=== PATIENT | male | born 1985 | race Caucasian/White ===

== ENCOUNTER 2016-04-10 15:03 | Inpatient (IN) | payer MEDICAID ==
[2016-04-10] MEDS ORDERED: fentaNYL 100 MCG/2 ML INJ ONE ×2 (15:27→20:06)
--- NOTE | 2016-04-10 15:51 | EDPHY ---
H & P Smoking Status: Current some day smoker Time Seen by Provider: 04/10/16 15:22 HPI/ROS: CHIEF COMPLAINT: Right leg injury HISTORY OF PRESENT ILLNESS: 30-year-old male presents to the emergency department by private vehicle with injury to his right lower leg. The patient was [place] and fell. He states that his leg was initially rotated 180. The incident happened earlier this afternoon. He last ate food at 11:00 a.m.. He denies numbness or tingling in his toes, pain in his right ankle or right knee. Denies right hip pain. He was wearing a helmet. Denies head injury or loss of consciousness. Denies neck or back pain. Denies abdominal pain. REVIEW OF SYSTEMS: Constitutional: No fever, no chills. Eyes: No double or blurry vision. ENT: No sore throat. Respiratory: No cough, no shortness of breath. Cardiac: No chest pain. Gastrointestinal: No abdominal pain, vomiting or diarrhea. Genitourinary: No dysuria. Musculoskeletal: Right leg pain as above. No neck or back pain. Skin: No rashes. Neurological: No headache. (Carmenza Webster) Past Medical/Surgical History: Negative (Carmenza Webster) Social History: Single (Carmenza Webster) Physical Exam: General Appearance: Alert, no distress. Mentating normally and answering questions appropriately. No visible signs of trauma to his head. Eyes: Pupils equal and round. Extraocular motions are all intact. ENT: Mouth: Mucous membranes moist. Respiratory: No wheezing, rhonchi, or rales, lungs are clear to auscultation. Cardiovascular: Regular rate and rhythm. Gastrointestinal: Abdomen is soft and nontender, no masses, no rebound or guarding, bowel sounds normal. Neurological: Alert and oriented x 3, cranial nerves II through XII grossly intact Skin: No open wound. Specifically no puncture wound. Warm and dry, no rashes. Musculoskeletal: Nontender to palpate along the cervical, thoracic or lumbar spine. Neck is supple. Extremities: Right calf is swollen. Skin is intact. It is not tense. He has tenderness with palpation in the right mid calf especially. Normal sensation to light touch with normal 2 point discrimination. Strong dorsalis pedis pulse on the dorsal aspect of the right foot. Right ankle is nontender. Right knee is nontender. Right hip is nontender. Unable to assess mobility of right lower leg secondary to pain. Psychiatric: Patient is oriented X 3, there is no agitation. (Carmenza Webster) Constitutional: Initial Vital Signs Temperature (C) 36.6 C 04/10/16 15:15 Heart Rate 82 04/10/16 15:15 Respiratory Rate 16 04/10/16 15:15 Blood Pressure 146/98 H 04/10/16 15:15 O2 Sat (%) 97 04/10/16 15:15 O2 Delivery Mode Room Air Allergies/Adverse Reactions: soy Allergy (Severe, Verified 04/10/16 15:18) Swelling/neck,face,throat Home Medications: Medication Instructions Recorded Albuterol [Proventil Inhaler HFA 1 - 2 puffs IH Q4H PRN 04/10/16 (*)] Ephedrine Sulfate/Guaifenesin 1 each PO Q4 PRN 04/10/16 [BRONKAID DUAL ACTION CAPLET] Herbals/Supplements -Info Only 1 ea PO DAILY 04/10/16 Multivitamins [Multivitamin (*)] 1 each PO DAILY 04/10/16 Medical Decision Making - Diagnostics Imaging: X-rays of the right tib-fib: Comminuted fractures of the middiaphyseal shafts of the right tibia and fibula with slight displacement and angulation of the fracture fragments. This is reviewed by myself and the PAC system as well as by the radiologist. (Carmenza Webster) ED Course/Re-evaluation: The patient was evaluated and managed by the physician's financial administrative assistant. My cosignature indicates that I reviewed the chart and I agree with the findings and plan of care as documented. I am the secondary supervising physician. Dr. Conrad is in the emergency department to evaluate the patient. (Akua Nova) 30-year-old male with a fall skiing presents with isolated right leg injury. X- rays reveal comminuted displaced tibia and fibular fracture. I spoke with Dr. Ronni Conrad who will take this patient to the operating room tonight. The patient was kept NPO. His leg was elevated and ice was applied to help minimize risk of compartment syndrome. Clinically I do not think this patient currently has compartment syndrome. ( Carmenza Webster) Differential Diagnosis: Including but not limited to fracture, dislocation, contusion, sprain (Carmenza Webster) - Data Points Medications Given: Discontinued Medications Fentanyl (Sublimaze) 50 mcg IVP EDNOW ONE Stop: 04/10/16 15:57 Last Admin: 04/10/16 15:57 Dose: 50 mcg Hydromorphone HCl (Dilaudid) 0.5 mg IVP EDNOW ONE Stop: 04/10/16 16:11 Last Admin: 04/10/16 16:33 Dose: 0.5 mg Departure - Departure Disposition: To OP Cath/Surgery Clinical Impression: Fracture of right tibia and fibula Qualifiers: Encounter type: initial encounter Fracture type: closed Qualified Code(s): S82.201A - Unspecified fracture of shaft of right tibia, initial encounter for closed fracture Condition: Good
[2016-04-10] MEDS ORDERED: fentaNYL 100 MCG/2 ML INJ IVP ONE (15:56)
[2016-04-10] MEDS ORDERED: HYDROmorphONE/DILAUDID 1 MG/ML SYR IVP ONE (16:10)
[2016-04-10] MEDS ORDERED: BUPIVACAINE 0.5% 30 ML SDV ONE (16:39)
[2016-04-10] MEDS ORDERED: POLYMYXIN B SULFATE 500,000 UNIT/10 ML SYR IRR ONE (16:39)
[2016-04-10] MEDS ORDERED: BUPIVACAINE/EPI 0.5% 30 ML SDV ONE (16:39)
[2016-04-10] MEDS ORDERED: BACITRACIN 50,000 UNITS/10 ML SYR IRR ONE (16:39)
[2016-04-10] MEDS ORDERED: HYDROmorphONE/DILAUDID 2 MG/ML INJ ONE (16:47)
[2016-04-10] MEDS ORDERED: LIDOCAINE 2% 5 ML SDV ONE (16:47)
[2016-04-10] MEDS ORDERED: LIDOCAINE 2% JELLY 5 ML TUBE ONE (16:47)
[2016-04-10] MEDS ORDERED: PROPOFOL 200 MG/20 ML VIAL ONE ×2 (16:47→17:15)
[2016-04-10] MEDS ORDERED: DEXAMETHASONE 4 MG/ML VIAL ONE ×2 (16:48)
[2016-04-10] MEDS ORDERED: ONDANSETRON 4 MG/2 ML VIAL ONE ×2 (16:48→19:40)
[2016-04-10] MEDS ORDERED: ceFAZolin 2 GM/DEXTROSE 100 ML IV ONE (16:54)
[2016-04-10] MEDS ORDERED: CEFAZOLIN 2 GM/DEXTROSE/100 ML BAG IV ONE (17:00)
[2016-04-10] MEDS ORDERED: LABETALOL HCL 5 MG/ML 20 ML MDV ONE (17:40)
--- NOTE | 2016-04-10 17:41 | GHP ---
DATE OF ADMISSION: 04/10/2016 ADMITTING COMPLAINT: Right leg injury. HISTORY OF PRESENT ILLNESS: The patient is a 30-year-old gentleman who was [place] the [place]. He had a twisting fall. Described as a slow fall. It most likely built up significant energy before it blew out his tibia. His leg was twisted 180 degrees and subsequently was rotated back int o alignment and splinted. The patient was brought into the emergency room. He presented [facility] 4 hours after the event. His leg was swollen. He had some mild numbness. He was wearing a hel met at the time of the injury and denied any head injury. ALLERGIES: None. MEDICATIONS: None. REVIEW OF SYSTEMS: Negative with the exception of HPI. PHYSICAL EXAM: GENERAL: The patient is alert, oriented, cooperative with exam. Minimal discomfort with light exam of the leg. He is able to flex and extend the toes. No pain with passive motion. HEENT: His pupils are equal, round. No facial abrasions. Mouth: Membranes moist. RESPIRATORY: Clear. CARDIOVASCULAR: Regular rate and rhythm. GI: Soft abdomen. No tenderness. NEUROLOGIC: Normal mentation. Sensation intact to light touch throughout all dermatomes. Hypesthesia in the f oot evidently improved significantly after getting his ski boot off. SKIN: No open wounds. EXTREM ITIES: Palpable tenderness along the mid shaft tibia. Any sort of motion causes discomfort. Calf swollen. Anterior and lateral compartments swollen. Pulses 1+ dorsalis pedis, posterior tibialis. X-RAYS: Reviewed. Show a comminuted midshaft fracture of the tibia with shortening and moderate di splacement. ASSESSMENT: Midshaft tibia fracture in a leg that has significant swelling. The patient will be ta nandini to the operating room for IM nailing. Pressure measurements will be taken after nailing and if elevated consideration will be given toward fasciotomy. Risks were discussed at length including th e possibility of nonunion or malunion, compartment syndrome, loss of feeling or loss of motor functi on, leg length discrepancy, rotational malalignment. Patient understands these risks, as well as ro utine surgical risks, elected to proceed with the surgery. /[id number]/MODL
[2016-04-10] MEDS ORDERED: ALBUTEROL 60 PUFFS/8 GM MDI IH PRN (19:26)
[2016-04-10] MEDS ORDERED: diphenhydrAMINE 25 MG CAP PO PRN (19:27)
[2016-04-10] MEDS ORDERED: ONDANSETRON 4 MG/2 ML VIAL IVP PRN (19:27)
[2016-04-10] MEDS ORDERED: TEMAZEPAM 15 MG CAP PO PRN (19:27)
[2016-04-10] MEDS ORDERED: ONDANSETRON DISINTEGRATING 4 MG TAB PO PRN (19:27)
[2016-04-10] MEDS ORDERED: PROMETHAZINE HCL 25 MG/ML INJ IVP PRN (19:27)
[2016-04-10] MEDS ORDERED: DIPHENOXYLATE/ATROPINE LOMOTIL 1 TAB PO PRN (19:27)
[2016-04-10] MEDS ORDERED: PROMETHAZINE HCL 25 MG SUPPR PR PRN (19:27)
[2016-04-10] MEDS ORDERED: METOCLOPRAMIDE 10 MG/2 ML VIAL IVP PRN (19:27)
[2016-04-10] MEDS ORDERED: LR 1,000 ML IV SCH (19:30)
[2016-04-10] MEDS ORDERED: PROMETHAZINE HCL 25 MG/ML INJ ONE (19:40)
--- NOTE | 2016-04-10 20:02 | GOP ---
DATE OF OPERATION: 04/10/2016 SURGEON: Ronni Conrad MD FIELD ARTILLERY TARGETING TECHNICIAN: Magui Cam PA-C. ANESTHESIA: General. PREOPERATIVE DIAGNOSIS: 1. Comminuted right tibia and fibular fracture. 2. Rule out compartment syndrome. POSTOPERATIVE DIAGNOSIS: 1. Right comminuted tibia and fibular fracture. 2. Anterior and lateral compartment syndrome. PROCEDURE PERFORMED: 1. Open reduction, internal fixation right tibia and fibula fracture with intramedullary implant (S ynthes IM nail). 2. Measurement fascial compartment pressures right anterior lateral posterior deep and posterior schroeder perficial compartments. 3. Anterior and lateral fasciotomy, compartment fasciotomy. FINDINGS: DESCRIPTION OF PROCEDURE: The patient taken to the operating room and administered general anesthes ia, placed in supine position. The right lower extremity was prepped and draped normal sterile [facility] ion. Examination was performed followed by the elevation of thigh tourniquet to 275 mmHg pressure. A midline incision was made over the patella. Lateral parapatellar incision was made. The startin g hole was made with the starting drill. We ascertained our position and alignment under fluoroscop y. Reaming then commenced with the starting reamer into the metaphyseal area. A ball-tip guide was then passed across the fracture site. The fracture was brought under the appropriate length and ro tation. The reaming commenced with a size 8-1/2 and extended up to a size 11. The mercedes measured 360 mm length by 10 mm diameter. This was attached to the insertion device. The mercedes was then placed a cross the fracture under fluoroscopic control. The guide apparatus was attached proximally to the r od to insert the cross locking screw proximally. Small incision was made medially. The drill guide s were positioned. The drill was passed across the metaphyseal segment of the tibia. The length of the screw was measured. The screw was then placed. There was a 5 mm diameter by 40 mm length scre w. The distal alignment was ascertained with the fluoroscopy unit. Perfect circles were obtained. The radiolucent drill was used to drill across the metaphyseal segment in the distal tibia across t he mercedes. This length was then measured. This distal screw was then placed. We scanned the fracture and felt we had appropriate positioning. The tourniquet was let down. The compartment pressures w ere measured. The deep and superficial, posterior compartments both measured in the 17 mmHg range. This was felt to be appropriate. The anterior and lateral compartments were measured at 35 and 37 mm, respectively. This was felt to be in an appropriate range. We elected to release the anterior and lateral compartments. The fasciotomy incision was made at the compartment interval. Small blee ders were cauterized. The anterior compartment fascia was then released followed by the lateral com partment fascia. Irrigation was then performed. The carla were placed along the edge of the fasc iotomy incision. We threaded a vascular vessel loop through the carla. This was brought under mi ld tension to bring the superficial skin edges slightly together. There was still an opening of jayce roximately 3-4 cm along the width of the fasciotomy site. All muscle seemed viable and contracted n icely to pinching with a forceps. A bacitracin-soaked Adaptic was placed over our incision. The st erile compression was applied followed by a posterior splint. The patient tolerated the procedure w ell and was transferred back to recovery in stable condition. There were no operative complications . COMPLICATIONS: None. /[id number]/MODL
[2016-04-10] MEDS: ceFAZolin 2 GM/DEXTROSE 100 ML IV SCH (21:39)
[2016-04-10] MEDS: FAMOTIDINE 20 MG TAB PO SCH (21:41)
[2016-04-10] MEDS: oxyCODONE IR 5 MG TAB PO PRN (22:02)
[2016-04-10] MEDS: ACETAMINOPHEN 325 MG TAB PO SCH (23:41)
[2016-04-10] MEDS: CYCLOBENZAPRINE 10 MG TAB PO PRN (23:41)
[2016-04-11] MEDS: ceFAZolin 2 GM/DEXTROSE 100 ML IV SCH (05:14)
[2016-04-11] MEDS: oxyCODONE IR 5 MG TAB PO PRN ×5 (05:14→21:40)
[2016-04-11] MEDS: ACETAMINOPHEN 325 MG TAB PO SCH ×4 (05:14→22:12)
[2016-04-11 05:25] LABS: HEMATOCRIT 34.4 % (40.0-51.0); HEMOGLOBIN 11.1 g/dL (13.7-17.5)
[2016-04-11] MEDS: FAMOTIDINE 20 MG TAB PO SCH ×2 (08:34→21:39)
[2016-04-11] MEDS: ASPIRIN 325 MG TAB PO SCH (08:34)
[2016-04-11] MEDS: CYCLOBENZAPRINE 10 MG TAB PO PRN ×2 (08:34→17:33)
--- NOTE | 2016-04-11 13:34 | SOAPPROG ---
SOAP Progress Note Assessment/Plan: Assessment: S/P Orif TIB/Fib Fx with IM nail and Anterior and lateral fasciotomies. Plan: Dressing change tomorrow. Neurovascular checks 04/11/16 13:32 Subjective: Mild pain Objective: Vital Signs Temp Pulse Resp BP Pulse Ox 37.0 C 61 16 106/61 99 04/11/16 12:00 04/11/16 12:00 04/11/16 12:00 04/11/16 12:00 04/11/16 12:00 Laboratory Results 04/11/16 04:26 04/10/16 04/11/16 04/12/16 05:59 05:59 05:59 Intake Total 2430 Output Total 1300 Balance 1130 VSS, CSMT ok no pain with prom toes. Can flex and extend toes actively ICD10 Worksheet Patient Problems: Problems Problem Status Onset Fracture of right tibia and fibula Acute
[2016-04-11] MEDS: ceFAZolin 2 GM in D5W 100 ML IV SCH ×2 (14:24→21:39)
[2016-04-11] MEDS ORDERED: BACITRACIN OINTMENT 1 PACKET TP PRN (14:57)
[2016-04-12] MEDS: ceFAZolin 2 GM in D5W 100 ML IV SCH ×3 (04:59→21:15)
[2016-04-12] MEDS: ACETAMINOPHEN 325 MG TAB PO SCH ×4 (04:59→23:58)
[2016-04-12] MEDS: oxyCODONE IR 5 MG TAB PO PRN ×2 (04:59→08:13)
[2016-04-12] MEDS: CYCLOBENZAPRINE 10 MG TAB PO PRN ×2 (05:00→14:15)
[2016-04-12 06:28] LABS: HEMOGLOBIN 10.3 g/dL (13.7-17.5)
[2016-04-12] MEDS: ASPIRIN 325 MG TAB PO SCH (08:12)
[2016-04-12] MEDS: FAMOTIDINE 20 MG TAB PO SCH ×2 (08:13→20:13)
--- NOTE | 2016-04-12 09:50 | SOAPPROG ---
SOAP Progress Note Assessment/Plan: Assessment/Plan: Right Tibia/Fibula Fracture, compartment syndrome S/P Orif TIB/Fib Fx with IM nail and Anterior and lateral fasciotomies, POD #2 -Dressing changed today, may need change tomorrow as well -Cont Neurovascular checks -Cont ice and elevation while in bed as tolerated -Cont NWB status of RLE -Cont ASA 325mg for VTE chemoprophylaxis -Cont non-op SCDs and TEDs for VTE mechanical prophylaxis -Cont current pain regimen, transition to PO pain meds as tolerated 04/12/16 09:50 Subjective: Pt seen at bedside today. Notes no significant pain this am, but does state he has had some discomfort when repositioning with PT/OT. Pt had considerable pain today with dressing change. Denies any new onset n/t of BLE, as well as any cp, sob or post calf pain contralaterally. Pt states he is tolerating his medications well. He does note some urinary retention overnight, but was relieved with straight cath. No additional concerns or complaints at this time. Objective: Vital Signs Temp Pulse Resp BP Pulse Ox 36.6 C 58 L 16 119/60 98 04/12/16 08:00 04/12/16 08:00 04/12/16 08:00 04/12/16 08:00 04/12/16 08:00 Laboratory Results 04/12/16 04:50 04/11/16 04/12/16 04/13/16 05:59 05:59 05:59 Intake Total 2430 1500 Output Total 1300 1350 1300 Balance 1130 150 -1300 Pt seen at bedside, A&Ox3, appropriate mood and affect. Pleasant and cooperative with exam. VSS. Exam of RLE reveals intact post operative dressings, saturated, which are removed revealing intact carla and retention closures. Surgical incisions are w/o significant erythema, calor or induration. Wound redressed with adaptic, ABD, cast padding, post orthoglass splint, and compressive franklin dressing assisted by MARILEE Kovacs. Pt tolerated with moderate pain. Pt able to move toes well. Contralateral post calf NTTP, no palpable vascular cord, neg Sabiha's. DNVI BLE. ICD10 Worksheet Patient Problems: Problems Problem Status Onset Fracture of right tibia and fibula Acute
[2016-04-13] MEDS: ACETAMINOPHEN 325 MG TAB PO SCH ×4 (05:32→23:46)
[2016-04-13] MEDS: ceFAZolin 2 GM in D5W 100 ML IV SCH ×3 (05:33→21:26)
[2016-04-13] MEDS: CYCLOBENZAPRINE 10 MG TAB PO PRN ×2 (06:20→22:12)
--- NOTE | 2016-04-13 09:00 | SOAPPROG ---
SOAP Progress Note Assessment/Plan: Assessment/Plan: - Continue pain management - Continue PT - Continue bed rest with toilet privileges - Closure of the fasciotomy site tomorrow in the OR - NPO after midnight 04/13/16 08:44 04/13/16 09:04 Subjective: Pt states he has had minimal pain over the past 24hours. Pain is a 2/10. Pt states when he was taking the morphine he was having trouble voiding and need a straight cath x 2. Dressing change was done yesterday. Pt denies fever, chills, chest pain, SOB, abdominal pain, N/V/D, calf pain, numbness and tingling. Objective: Vital Signs Temp Pulse Resp BP Pulse Ox 37.1 C 68 16 120/74 96 04/13/16 07:42 04/13/16 07:42 04/13/16 07:42 04/13/16 07:42 04/13/16 07:42 Laboratory Results 04/12/16 04:50 04/12/16 04/13/16 04/14/16 05:59 05:59 05:59 Intake Total 1500 1255 425 Output Total 1350 3200 400 Balance 150 -1945 25 Physical Exam - Physical Exam General Appearance: alert, no apparent distress Skin: normal color, warm/dry Extremities: normal capillary refill, other (Dressing and splint intact LLE with minimal oozing on dressing; pt is able to wiggle his toes and strength intact), No pedal edema, No calf tenderness, No swelling, No Sabiha's sign Neuro/Psych: no motor/sensory deficits, alert, normal mood/affect ICD10 Worksheet Patient Problems: Problems Problem Status Onset Fracture of right tibia and fibula Acute
[2016-04-13] MEDS: ASPIRIN 325 MG TAB PO SCH (09:33)
[2016-04-13] MEDS: FAMOTIDINE 20 MG TAB PO SCH ×2 (09:41→21:26)
[2016-04-14] MEDS: ACETAMINOPHEN 325 MG TAB PO SCH ×3 (05:14→18:47)
[2016-04-14] MEDS: ceFAZolin 2 GM in D5W 100 ML IV SCH ×3 (05:16→20:47)
[2016-04-14] MEDS: ASPIRIN 325 MG TAB PO SCH (07:38)
[2016-04-14] MEDS: FAMOTIDINE 20 MG TAB PO SCH ×2 (07:38→20:46)
[2016-04-14] MEDS ORDERED: POLYMYXIN B SULFATE 500,000 UNIT/10 ML SYR IRR ONE (08:45)
[2016-04-14] MEDS ORDERED: BUPIVACAINE 0.5% 30 ML SDV ONE (08:45)
[2016-04-14] MEDS ORDERED: BACITRACIN 50,000 UNITS/10 ML SYR IRR ONE (08:46)
--- NOTE | 2016-04-14 11:36 | SOAPPROG ---
SOAP Progress Note Assessment/Plan: Assessment/Plan: s/p ORIF right tibia and fibula with IM nail; fasciotomy of the anterior and lateral compartments POD#4 - Continue pain management - Continue PT - Continue bed rest with toilet privileges - Closure of the fasciotomy site today - Remain NPO 04/13/16 08:44 04/13/16 09:04 04/14/16 11:35 04/14/16 11:36 Subjective: Pt states his pain is manageable and has not been needing the narcotics. Pt has had some muscle spasms. Pt denies fever, chills, chest pain, SOB, abdominal pain, N/V/D, numbness, tingling and calf pain. Objective: Vital Signs Temp Pulse Resp BP Pulse Ox 36.8 C 56 L 16 106/66 98 04/14/16 07:45 04/14/16 07:45 04/14/16 07:45 04/14/16 07:45 04/14/16 07:45 Laboratory Results 04/12/16 04:50 04/13/16 04/14/16 04/15/16 05:59 05:59 05:59 Intake Total 1255 1500 Output Total 3200 1555 Balance -1945 -55 Physical Exam - Physical Exam General Appearance: alert, no apparent distress Skin: normal color, warm/dry, other (Splint intact RLE) Extremities: normal capillary refill, No pedal edema, No calf tenderness, No swelling, No Sabiha's sign Neuro/Psych: no motor/sensory deficits, alert, normal mood/affect ICD10 Worksheet Patient Problems: Problems Problem Status Onset Fracture of right tibia and fibula Acute
[2016-04-14] MEDS ORDERED: POLYETHYLENE GLYCOL 3350 17 GM PKT PO PRN (16:26)
[2016-04-14] MEDS ORDERED: BISACODYL 10 MG SUPP PR PRN (16:26)
[2016-04-14] MEDS ORDERED: MAGNESIUM HYDROXIDE 30 ML UDCUP PO PRN (16:26)
[2016-04-14] MEDS ORDERED: LACTULOSE 20 GM/30 ML UDCUP PO PRN (16:26)
[2016-04-14] MEDS ORDERED: MIDAZOLAM 2 MG/2 ML VIAL ONE (16:34)
[2016-04-14] MEDS ORDERED: fentaNYL 100 MCG/2 ML INJ ONE ×2 (16:45→18:18)
[2016-04-14] MEDS ORDERED: PROPOFOL 200 MG/20 ML VIAL ONE ×2 (16:45)
[2016-04-14] MEDS ORDERED: DEXAMETHASONE 4 MG/ML VIAL ONE (16:50)
[2016-04-14] MEDS ORDERED: ONDANSETRON 4 MG/2 ML VIAL ONE (16:50)
[2016-04-14] MEDS ORDERED: LIDOCAINE 2% 5 ML SDV ONE (16:51)
[2016-04-14] MEDS ORDERED: oxyCODONE IR 5 MG TAB PO PRN (17:58)
[2016-04-14] MEDS ORDERED: PROMETHAZINE HCL 25 MG SUPPR PR PRN (17:58)
[2016-04-14] MEDS ORDERED: PROMETHAZINE HCL 25 MG/ML INJ IVP PRN (17:58)
[2016-04-14] MEDS ORDERED: LR 1,000 ML IV SCH (18:00)
--- NOTE | 2016-04-14 18:49 | GOP ---
DATE OF OPERATION: 04/14/2016 SURGEON: Ronni Conrad MD ANESTHESIA: General. PREOPERATIVE DIAGNOSIS: Right tibia and fibula fracture with associated compartment syndrome, anter ior and lateral compartments, status post fasciotomies. POSTOPERATIVE DIAGNOSIS: Right tibia and fibula fracture with associated compartment syndrome, ante rior and lateral compartments, status post fasciotomies. PROCEDURE PERFORMED: Closure of lateral fasciotomy incision. FINDINGS: DESCRIPTION OF PROCEDURE: The patient was taken to the operating room, administered general anesthe eloise, placed in the supine position. The previous tensioning suture device was then removed using st aple remover. The leg was copiously cleansed with Betadine solution. We then copiously irrigated t he wound with normal saline. The skin was closed in a far-near and near-far suture technique using 2-0 nylon suture. There was mild tensioning. A sterile compression dressing was applied followed b y a padded splint. The patient tolerated the procedure well and was transferred back to recovery in stable condition. No operative complications. COMPLICATIONS: None. /[id number]/MODL
[2016-04-14] MEDS: SENNOSIDES/DOCUSATE SODIUM TAB PO SCH (20:46)
[2016-04-14 20:59] VITALS: RESP 18
[2016-04-14] MEDS ORDERED: ceFAZolin 2 GM/DEXTROSE 100 ML IV SCH (22:00)
[2016-04-15] MEDS: ACETAMINOPHEN 325 MG TAB PO SCH ×3 (00:13→12:12)
[2016-04-15 05:30] LABS: HEMOGLOBIN 10.3 g/dL (13.7-17.5)
[2016-04-15] MEDS: ceFAZolin 2 GM in D5W 100 ML IV SCH ×2 (06:18→14:03)
--- NOTE | 2016-04-15 09:09 | SOAPPROG ---
SOAP Progress Note Assessment/Plan: Assessment/Plan: s/p ORIF right tibia and fibula with IM nail; fasciotomy of the anterior and lateral compartments POD#5, with closure of the fasciotomy site POD#1 - Continue pain management - Continue PT - Pt can be out of bed; crutches for ambulation - NWB RLE - Needs one more dose of Ancef post-operatively - Pt is okay for discharge today after last antibiotic dose 04/13/16 08:44 04/13/16 09:04 04/14/16 11:35 04/14/16 11:36 04/15/16 09:06 Subjective: Pt states he is doing well, pain is minimal, and he is ready to go home. Pt denies fever, chills, chest pain, SOB, abdominal pain, N/V/D, calf pain, numbness and tingling. Objective: Vital Signs Temp Pulse Resp BP Pulse Ox 36.8 C 74 18 120/78 98 04/15/16 08:00 04/15/16 08:00 04/15/16 08:00 04/15/16 08:00 04/15/16 08:00 Laboratory Results 04/15/16 05:07 04/14/16 04/15/16 04/16/16 05:59 05:59 05:59 Intake Total 1500 1200 Output Total 1555 1135 300 Balance -55 65 -300 Physical Exam - Physical Exam General Appearance: alert, no apparent distress Skin: normal color, warm/dry Extremities: normal capillary refill, No pedal edema, No calf tenderness, No swelling, No Sabiha's sign, No other (Pt is able to wiggle his R toes with good strength, calves soft without tenderness. Post-operative splint and dressings intact RLE) ICD10 Worksheet Patient Problems: Problems Problem Status Onset Fracture of right tibia and fibula Acute
[2016-04-15] MEDS: SENNOSIDES/DOCUSATE SODIUM TAB PO SCH (09:29)
[2016-04-15] MEDS: ASPIRIN 325 MG TAB PO SCH (09:29)
[2016-04-15] MEDS: FAMOTIDINE 20 MG TAB PO SCH (09:30)
[2016-04-15 12:57] VITALS: BP 131/69; PULSE 65; TEMP 98.5; O2SAT 95
--- NOTE | 2016-04-15 13:29 | PDDCSUM ---
Discharge Summary Discharge Summary: 30y/o M presented to the ED on 04/10/2016, c/o right leg pain after an injury a few hours prior. Pt was on an overnight, cross-country skiing trip, when the edge of the ski got caught and he had a slow, twisting fall. X-rays showed a right comminuted, tibia and fibula fracture with significant swelling. Pt was taken to the OR by Dr. Conrad the same day and performed ORIF of the tibia and fibula with IM nail fixation; anterior and lateral fasciotomies were also performed due to increased pressures. Post-operatively, pt was placed on Ancef q8hrs for infection prophylaxis, Aspirin 325mg daily for VTE chemoprophylaxis, and SCDs/TEDs for mechanical prophylaxis. Pt was on bedrest. Pt was taken back to the OR on 04/14/2016, for closure of the fasciotomy site. Pt remained NWB RLE, and crutches for ambulation. Pain was well-controlled post-operatively. Pt was cleared for discharge once last dose of antibiotics was received after the second operation. Hospital course otherwise uneventful.
== END 2016-04-15 15:30 | disposition home or self-care (01) | DRG 493 ==
LOC: OBSVTOIN 19:27 → F3N 20:22
PROVIDERS: ADMIT Orthopaedic Surgery Sports Medicine; ATTEND Orthopaedic Surgery Sports Medicine
PROC: 0QSG06Z Reposition Right Tibia with Intramedullary Internal Fixation Device, Open Approach (ICD-10-PCS; principal; 2016-04-10 17:10)
PROC: 0J9N0ZZ Drainage of Right Lower Leg Subcutaneous Tissue and Fascia, Open Approach (ICD-10-PCS; 2016-04-10 17:10)
PROC: 0HQKXZZ Repair Right Lower Leg Skin, External Approach (ICD-10-PCS; 2016-04-14)
DX: S82.251A Displaced comminuted fracture of shaft of right tibia, initial encounter for closed fracture (principal); S82.451A Displaced comminuted fracture of shaft of right fibula, initial encounter for closed fracture; T79.A21A Traumatic compartment syndrome of right lower extremity, initial encounter; V00.321A Fall from snow-skis, initial encounter; Y93.23 Activity, snow (alpine) (downhill) skiing, snowboarding, sledding, tobogganing and snow tubing; Y92.828 Other wilderness area as the place of occurrence of the external cause; Y99.8 Other external cause status; J45.909 Unspecified asthma, uncomplicated
CPT/HCPCS: 96374; 97116-GP; 97161-GP; 97165-GO; 97168-GO; 97530-GP; 97535-GO; C1713; J0690; J1100; J1170; J2250; J2405; J2550; J2704; J3010; J3490